=== PATIENT | male | born 1965 | race Hispanic/Latino ===

== ENCOUNTER 2017-09-13 03:53 | Inpatient (IN) | payer OTHER ==
[~2017-09-13] VITALS: Ht 167.6 cm; Wt 87.5 kg
--- NOTE | 2017-09-13 04:17 | ED GI/GU/ABDOMINAL COMPLAINT ---
History of Present Illness General Chief Complaint: Abdominal Pain/Flank Pain Stated Complaint: "ABD PAIN" Source: patient Exam Limitations: no limitations Vital Signs & Intake/Output Vital Signs & Intake/Output Vital Signs Date Time Temp Pulse Resp B/P B/P Pulse O2 O2 Flow FiO2 Mean Ox Delivery Rate 09/13 0620 98.6 95 18 133/96 94 Room Air 09/13 0451 98.0 83 16 127/83 96 Room Air 09/13 0409 97.9 60 24 163/95 98 Room Air Room Air Allergies Coded Allergies: No Known Allergies (09/13/17) Triage Note: 52YO MALE TO TRIAGE W/CO ABD, VOMITING X 2 H PT IS WELSH SPEAKING. Triage Nurses Notes Reviewed? yes Onset: Gradual Duration: hour(s): Timing: recent history Quality/Severity: cramping Location: generalized abdomen Radiation: no radiation Activities at Onset: none Prior Abdominal Problems: none Modifying Factors: Worsens With: palpation. Associated Symptoms: abdominal pain HPI: 52-year-old gentleman history of diabetes and hypertension, history of umbilical hernia repair presents with 4 hour history of abdominal pain, distention, nausea. He notes that he had a bowel movement that was normal approximately 5 hours ago. For the past 2 hours he has been vomiting. He has no chest pain shortness of breath dizziness fever chills dysuria or increased urination. He is otherwise well. (Khanh BLACKBURN,Chaim Garcia) Reconcile Medications Aspirin (Ecotrin*) 81 MG TABLET. 81 MG PO DAILY HEART HEALTH (Reported) Dapagliflozin Propanediol (Farxiga) 5 MG TABLET 5 MG PO DAILY DIABETES ( Reported) Glipizide (Glipizide ER) 10 MG TAB.ER.24 10 MG PO BID DIABETES (Reported) Linagliptin (Tradjenta) 5 MG TABLET 5 MG PO DAILY DIABETES (Reported) Metformin HCl (Metformin HCl ER) 500 MG TAB.ER.24 1 G PO DAILY DIABETES ( Reported) Metoprolol Succ XL (Toprol XL) 25 MG TAB 25 MG PO DAILY HTN (Reported) Repaglinide (Prandin) 2 MG TABLET 2 MG PO DAILY DIABETES (Reported) Repaglinide (Prandin) 2 MG TABLET 2 MG PO TID DIABETES (Reported) (Talat BLACKBURN,Arslan) Past History Travel History Traveled to [place] past 21 day No Medical History Any Pertinent Medical History? see below for history Neurological: NONE EENT: NONE Cardiovascular: hyperlipidemia Respiratory: NONE Gastrointestinal: NONE Hepatic: NONE Renal: NONE Musculoskeletal: NONE Psychiatric: NONE Endocrine: diabetes Surgical History Surgical History: none Psychosocial History What is your primary language Australian Tobacco Use: Never used Family History Hx Contributory? No (Khanh BLACKBURN,Chaim Garcia) Review of Systems Review of Systems Constitutional: Reports: no symptoms. EENTM: Reports: no symptoms. Respiratory: Reports: no symptoms. Cardiovascular: Reports: no symptoms. GI: Reports: no symptoms. Genitourinary: Reports: no symptoms. Musculoskeletal: Reports: no symptoms. Skin: Reports: no symptoms. Neurological/Psychological: Reports: no symptoms. Hematologic/Endocrine: Reports: no symptoms. Immunologic/Allergic: Reports: no symptoms. All Other Systems: Reviewed and Negative (Khanh BLACKBURN,Chaim Garcia) Physical Exam Physical Exam General Appearance: well developed/nourished, mild distress, moderate distress Head: atraumatic, normal appearance Eyes: Bilateral: normal appearance. Ears, Nose, Throat, Mouth: hearing grossly normal, moist mucous membrane Neck: normal inspection, supple, full range of motion Respiratory: normal breath sounds, chest non-tender, no respiratory distress, quiet respiration, lungs clear Cardiovascular: regular rate/rhythm Gastrointestinal: moderate abdominal distention. Soft without focal tenderness. Decreased bowel sounds. Back: normal inspection Extremities: normal range of motion Neurologic/Psych: no motor/sensory deficits, awake, alert, oriented x 3 Skin: intact, normal color, warm/dry Core Measures ACS in differential dx? No Sepsis Present: No Sepsis Focused Exam Completed? No (Khanh BLACKBURN,Chaim Garcia) Progress Differential Diagnosis: obstruction versus ileus versus diverticulitis versus other Plan of Care: Orders Procedure Date/time Status Admit to inpatient 09/13 0710 Active Patient Data 09/13 07 Active Add-on Test (ER Only) 09/13 07 Active FingerStick- Glucose 09/13 07 Active TYPE & SCREEN (NOT X-MATCH) 09/13 07 Active PROTHROMBIN TIME 09/13 0417 Active TROPONIN LEVEL 09/13 035 Complete LIPASE 09/13 354 Complete HEPATIC FUNCTION PANEL 09/13 354 Complete CBC WITHOUT DIFFERENTIAL 09/13 354 Complete BASIC METABOLIC PANEL 09/13 035 Complete AMYLASE 09/13 035 Complete EKG 09/13 035 Active Current Medications Sig/Ronnie Start time Last Medication Dose Stop Time Status Admin Insulin Human Regular 0 Q6 09/13 0715 UNVr (NovoLIN R) Sodium Chloride 1,000 ML BOLUS ONE 09/13 629 AC 09/13 (Normal Saline 0.9%) 09/13 07 0631 Sodium Chloride 1,000 ML BOLUS ONE 09/13 0530 AC 09/13 (Normal Saline 0.9%) 09/13 0729 0710 Laboratory Tests 09/13/17416: PT Pending, INR Pending 09/13/17414: Anion Gap 20 H, Estimated GFR > 60, BUN/Creatinine Ratio 16.7, Glucose 316 H, Calcium 10.5 H, Total Bilirubin 1.8 H, Direct Bilirubin 0.4, AST 29, ALT 59, Alkaline Phosphatase 77, Troponin I < 0.01, Total Protein 8.3 H, Albumin 4.8, Amylase 49, Lipase 58, CBC w Diff NO MAN DIFF REQ, RBC 6.78 H, MCV 82.0, MCH 27.8, MCHC 33.9, RDW 14.7 H, MPV 9.2, Gran % 82.4 H, Lymphocytes % 13.5 L, Monocytes % 3.0, Eosinophils % 1.0, Basophils % 0.1, Absolute Granulocytes 7.8 H, Absolute Lymphocytes 1.3, Absolute Monocytes 0.3, Absolute Eosinophils 0.1, Absolute Basophils 0 Diagnostic Imaging: Viewed by Me: Radiology Read, CT Scan. Discussed w/RAD: Radiology Read, CT Scan. CXR Impression: no acute abnormality, no infiltrates, normal size heart, normal mediastinum, PATIENT: PENELOPE MORENO PRESENT AGE: 52 PATIENT ACCOUNT NO: [id number] : 63 LOCATION: [facility] ORDERING PHYSICIAN: Chaim Cassidy MD SERVICE DATE: 09/13/17 EXAM TYPE: RAD - XRY- PORTABLE CHEST XRAY EXAMINATION: XR PORTABLE CHEST CLINICAL INFORMATION: Dyspnea COMPARISON: None TECHNIQUE: Portable frontal view of the chest was obtained. FINDINGS: The lungs are hypoinflated which limits evaluation. No definite consolidation is seen. No evidence of pneumothorax, significant pleural effusion , or overt pulmonary edema. The cardiac silhouette is enlarged though may be accentuated by low lung volumes. No acute osseous findings are seen. IMPRESSION: Low lung volumes which limits evaluation; no definite acute findings. Enlarged cardiac silhouette may be accentuated due to hypoinflation. DICTATED BY: Danie Kim MD DATE/TIME DICTATED:09/13/17558 DIE CAST TECHNICIAN:ISABELL DATE/ TIME TRANSCRIBED:09/13/17558 CONFIDENTIAL, DO NOT COPY WITHOUT APPROPRIATE AUTHORIZATION. <Electronically signed in Other Vendor System> SIGNED BY: Danie Kim MD 09/13/17 06 Initial ED EKG: sinus tach without acute changes Hand-Off Endorsed To: Arslan Gilliland MD Endorsed Time: 07 Pending: consult, other (PA evaluation) (Khanh BLACKBURN,Chaim Garcia) Departure Departure Disposition: STILL A PATIENT Condition: Stable Clinical Impression Primary Impression: Small bowel obstruction Referrals: Patient Has No Primary Care Dr (PCP/Family) Departure Forms: Customer Survey General Discharge Information Admission Note Spoke With: Joe BLACKBURN,Thien Coronado Documentation of Exam: Documentation of any treatments & extenuating circumstances including Concerns Regarding Discharge (functional status, medication knowledge or non-compliance, living conditions, etc.) that warrant an admission rather than observation: Pt with small bowel obstruction, will merit iv fluids, bowel rest, electrolyte management. (Khanh BLACKBURN,Chaim Garcia)
[2017-09-13 04:24] LABS: ABSOLUTE BASOPHIL COUNT 0 /CUMM (0.0-0.2); ABSOLUTE EOSINOPHIL COUNT 0.1 /CUMM (0.0-0.7); ABSOLUTE GRANULOCYTE CT 7.8 /CUMM (1.4-6.5); ABSOLUTE LYMPH COUNT 1.3 /CUMM (1.2-3.4); ABSOLUTE MONOCYTE COUNT 0.3 /CUMM (0.10-0.60); BASOPHIL % 0.1 % (0.0-2.0); GRANULOCYTE % 82.4 % (42.2-75.2); HEMATOCRIT 55.6 % (42-52); MEAN CORPUSCULAR HGB 27.8 PG (27.0-31.0); MEAN CORPUSCULAR HGB CONC 33.9 G/DL (33.0-37.0); MEAN PLATELET VOLUME 9.2 FL (7.4-10.4); PLATELET COUNT 220 /CUMM (130-400); RBC DISTRIBUTION WIDTH 14.7 % (11.5-14.5); RED BLOOD CELL CT 6.78 /CUMM (4.70-6.10); WHITE BLOOD CELL COUNT 9.4 /CUMM (4.8-10.8)
--- NOTE | 2017-09-13 06:04 | RADIOLOGY REPORT ---
EXAMINATION: XR PORTABLE CHEST CLINICAL INFORMATION: Dyspnea COMPARISON: None TECHNIQUE: Portable frontal view of the chest was obtained. FINDINGS: The lungs are hypoinflated which limits evaluation. No definite consolidation is seen. No evidence of pneumothorax, significant pleural effusion, or overt pulmonary edema. The cardiac silhouette is enlarged though may be accentuated by low lung volumes. No acute osseous findings are seen. IMPRESSION: Low lung volumes which limits evaluation; no definite acute findings. Enlarged cardiac silhouette may be accentuated due to hypoinflation.
--- NOTE | 2017-09-13 06:14 | CT SCAN REPORT ---
EXAMINATION: CT ABDOMEN AND PELVIS WITHOUT CONTRAST CLINICAL INFORMATION: Abdominal pain, distention, question obstruction COMPARISON: None TECHNIQUE: Multidetector volumetric imaging was performed from the superior aspect of the liver through the pubic symphysis. Sagittal and coronal reformatted images were obtained on the technologist's workstation. DLP: 915.04 mGy-cm FINDINGS: LUNG BASES: The visualized lung bases are unremarkable. Coronary artery calcifications are present. LIVER, GALLBLADDER, AND BILIARY TREE: The liver demonstrates hypoattenuation suspicious for steatosis. No biliary ductal dilatation is present. The gallbladder is unremarkable with no evidence of radiopaque gallstones, gallbladder wall thickening, or obvious pericholecystic inflammatory changes. PANCREAS: Unremarkable. SPLEEN: The spleen is enlarged, measuring approximately 15.4 cm in craniocaudal dimension. ADRENAL GLANDS: Unremarkable. KIDNEYS AND URETERS: No hydronephrosis bilaterally. There is a 0.5 cm right upper pole renal calculus and a 0.5 cm left lower pole renal calculus. No ureteral calculi seen bilaterally. BLADDER: Unremarkable. GASTROINTESTINAL TRACT: There are multiple loops of mildly dilated fluid-filled small bowel in the left to central abdomen, with relatively collapsed loops of more distal small bowel in the right abdomen. Bowel caliber appears to gradually decreased from the central to right abdomen, and overall appearance is suspicious for a developing small bowel obstruction. No discrete transition point is seen. There is a small amount of free fluid in the right abdomen. Colonic diverticulosis is noted. ABDOMINAL WALL: Patient is status post ventral hernia repair. LYMPH NODES: Normal. VASCULAR: There is atherosclerotic calcification along the aorta. PELVIC VISCERA: Unremarkable. Trace pelvic free fluid is noted. OSSEOUS STRUCTURES: Scattered degenerative changes are present in the spine. IMPRESSION: 1. Multiple loops of mildly dilated fluid-filled small bowel in the left to central abdomen, with decreased caliber of bowel loops in the right abdomen. Overall appearance is suspicious for developing small bowel obstruction. 2. Small volume of free fluid. 3. Splenomegaly. 4. Right upper and left lower pole renal calculi. No hydronephrosis. 5. Hepatic steatosis.
[2017-09-13] MEDS ORDERED: ASPIRIN EC81 M1 PO (06:35)
[2017-09-13] MEDS ORDERED: METFORMIN HCL500 M2 PO (06:36)
[2017-09-13] MEDS ORDERED: TOPROL XL25 M1 PO (06:37)
[2017-09-13] MEDS ORDERED: FARXIGA5 M1 PO (06:39)
[2017-09-13] MEDS ORDERED: GLIPIZIDE ER10 M1 PO (06:41)
[2017-09-13] MEDS ORDERED: TRADJENTA5 M1 PO (06:46)
[2017-09-13] MEDS ORDERED: PRANDIN PO ×2 (06:52→06:53)
--- NOTE | 2017-09-13 07:21 | Admission Core Measures ---
Acute Coronary Syndrome (CM) ACS Core Measures Acute Coronary Syndrome Diagnosis No Congestive Heart Failure (NEW) CHF Core Measures Congestive Heart Failure Diagnosis No Cerebrovascular Accident (NEW) CVA Core Measures CVA/TIA Diagnosis No Venous Thromboembolism VTE Core Humphrey (View Protocol) VTE Risk Factors Obesity No Mechanical VTE Prophylaxis d/t N/A MechProphylax Ordered No VTE Pharm Prophylaxis d/t NA PharmProphylax ordered Problem List As ranked by this Provider includes Assessment & Plan 1. Small bowel obstruction HOME MEDS Home Med List Aspirin (Ecotrin*) 81 MG TABLET.DR 81 MG PO DAILY HEART HEALTH (Reported) Dapagliflozin Propanediol (Farxiga) 5 MG TABLET 5 MG PO DAILY DIABETES ( Reported) Glipizide (Glipizide ER) 10 MG TAB.ER.24 10 MG PO BID DIABETES (Reported) Linagliptin (Tradjenta) 5 MG TABLET 5 MG PO DAILY DIABETES (Reported) Metformin HCl (Metformin HCl ER) 500 MG TAB.ER.24 1 G PO DAILY DIABETES ( Reported) Metoprolol Succ XL (Toprol XL) 25 MG TAB 25 MG PO DAILY HTN (Reported) Repaglinide (Prandin) 2 MG TABLET 2 MG PO DAILY DIABETES (Reported) Repaglinide (Prandin) 2 MG TABLET 2 MG PO TID DIABETES (Reported)
[2017-09-13 07:24] LABS: PT 12.1 SEC (9.4-12.5)
--- NOTE | 2017-09-13 09:25 | History & Physical ---
Bryan Myers 09/13/17 0923: General Information and HPI MD Statement: I have seen and personally examined PENELOPE MORENO and documented this H&P. The patient is a 52 year old M who presented with a patient stated chief complaint of [small bowel obstruction]. Source of Information: patient, old records Exam Limitations: language barrier History of Present Illness: Mr. Moreno is a 52-year-old male, Tajik-speaking only (very little Bolivian), with a past medical history of diabetes mellitus, obesity, high cholesterol presents with a history of abdominal pain and vomiting approximately 3-5 hours prior to admission. He denies a past history of this or previous bowel obstructions. He had a repair of an umbilical hernia proximally 5 years ago. He states that he had a formed bowel movement yesterday and has no urinary complaints at this time. CAT scan evidence reveals dilated loops of small bowel consistent with small bowel obstruction Allergies/Medications Allergies: Coded Allergies: No Known Allergies (09/13/17) Home Med list Aspirin (Ecotrin*) 81 MG TABLET.DR 81 MG PO DAILY HEART HEALTH (Reported) Dapagliflozin Propanediol (Farxiga) 5 MG TABLET 5 MG PO DAILY DIABETES ( Reported) Glipizide (Glipizide ER) 10 MG TAB.ER.24 10 MG PO BID DIABETES (Reported) Linagliptin (Tradjenta) 5 MG TABLET 5 MG PO DAILY DIABETES (Reported) Metformin HCl (Metformin HCl ER) 500 MG TAB.ER.24 1 G PO DAILY DIABETES ( Reported) Metoprolol Succ XL (Toprol XL) 25 MG TAB 25 MG PO DAILY HTN (Reported) Repaglinide (Prandin) 2 MG TABLET 2 MG PO DAILY DIABETES (Reported) Repaglinide (Prandin) 2 MG TABLET 2 MG PO TID DIABETES (Reported) Past History Travel History Traveled to [place] past 21 day No Medical History Neurological: NONE EENT: NONE Cardiovascular: hyperlipidemia Respiratory: NONE Gastrointestinal: NONE Hepatic: NONE Renal: NONE Musculoskeletal: NONE Psychiatric: NONE Endocrine: diabetes Surgical History Surgical History: none Review of Systems Review of Systems Constitutional: Denies: no symptoms, see HPI, chills, diaphoresis, fever, malaise, weakness, unexplained weight loss. Exam & Diagnostic Data Last 24 Hrs of Vital Signs/I&O Vital Signs Date Time Temp Pulse Resp B/P B/P Pulse O2 O2 Flow FiO2 Mean Ox Delivery Rate 09/13 0936 98.6 70 20 132/73 09/13 0743 98.6 88 18 142/94 97 Room Air 09/13 0620 98.6 95 18 133/96 94 Room Air 09/13 0451 98.0 83 16 127/83 96 Room Air 09/13 0409 97.9 60 24 163/95 98 Room Air Room Air Intake & Output 09/13 1600 09/13 0800 06 0000 Intake Total 1000 2000 Output Total 230 Balance 1000 1770 Intake, IV 1000 2000 Intake, Oral 0 Output, 30 Gastric Drainage Output, Urine 200 Patient 180 lb Weight Physical Exam General Appearance Alert, Oriented X3, Cooperative Skin No Significant Lesion HEENT PERRLA Cardiovascular Regular Rate Lungs Clear to Auscultation Abdomen obese, distended, minimal tenderness to palpation, hypoactive bowel sounds, no guarding to palpation Neurological Strength at 5/5 X4 Ext Extremities No Edema, Normal Pulses, No Tenderness/Swelling Last 24 Hrs of Labs/Douglas: Laboratory Tests 09/13/17416: PT 12.1, INR 1.11 09/13/17414: Anion Gap 20 H, Estimated GFR > 60, BUN/Creatinine Ratio 16.7, Glucose 316 H, Calcium 10.5 H, Total Bilirubin 1.8 H, Direct Bilirubin 0.4, AST 29, ALT 59, Alkaline Phosphatase 77, Troponin I < 0.01, Total Protein 8.3 H, Albumin 4.8, Amylase 49, Lipase 58, CBC w Diff NO MAN DIFF REQ, RBC 6.78 H, MCV 82.0, MCH 27.8, MCHC 33.9, RDW 14.7 H, MPV 9.2, Gran % 82.4 H, Lymphocytes % 13.5 L, Monocytes % 3.0, Eosinophils % 1.0, Basophils % 0.1, Absolute Granulocytes 7.8 H, Absolute Lymphocytes 1.3, Absolute Monocytes 0.3, Absolute Eosinophils 0.1, Absolute Basophils 0 Diagnostic Data CXR Results SERVICE DATE: 09/13/17-799 EXAM TYPE: RAD - XRY-CHEST XRAY, TWO VIEWS EXAMINATION: XR CHEST CLINICAL INFORMATION: NG tube placement COMPARISON: 09/13/2017 TECHNIQUE: 2 views of the chest were obtained. FINDINGS: The examination is limited by the marked hypoexpansion, as noted previously. No obvious consolidation or atelectasis. The cardiac silhouette is prominent but difficult to evaluate on this study. Enteric tube extends below diaphragm, tip not visualized. IMPRESSION: Low lung volumes. No obvious consolidation or atelectasis. DICTATED BY: Myke Sykes MD DATE/TIME DICTATED:09/13/17925 SPANISH MEDICAL INTERPRETER:ISABELL DATE/TIME TRANSCRIBED:09/13/17925 Other Results SERVICE DATE: 09/13/17 EXAM TYPE: CAT - CT ABD & PELVIS W/O IV CONTRAS EXAMINATION: CT ABDOMEN AND PELVIS WITHOUT CONTRAST CLINICAL INFORMATION: Abdominal pain, distention, question obstruction COMPARISON: None TECHNIQUE: Multidetector volumetric imaging was performed from the superior aspect of the liver through the pubic symphysis. Sagittal and coronal reformatted images were obtained on the technologist's workstation. DLP: 915.04 mGy-cm FINDINGS: LUNG BASES: The visualized lung bases are unremarkable. Coronary artery calcifications are present. LIVER, GALLBLADDER, AND BILIARY TREE: The liver demonstrates hypoattenuation suspicious for steatosis. No biliary ductal dilatation is present. The gallbladder is unremarkable with no evidence of radiopaque gallstones, gallbladder wall thickening, or obvious pericholecystic inflammatory changes. PANCREAS: Unremarkable. SPLEEN: The spleen is enlarged, measuring approximately 15.4 cm in craniocaudal dimension. ADRENAL GLANDS: Unremarkable. KIDNEYS AND URETERS: No hydronephrosis bilaterally. There is a 0.5 cm right upper pole renal calculus and a 0.5 cm left lower pole renal calculus. No ureteral calculi seen bilaterally. BLADDER: Unremarkable. GASTROINTESTINAL TRACT: There are multiple loops of mildly dilated fluid-filled small bowel in the left to central abdomen, with relatively collapsed loops of more distal small bowel in the right abdomen. Bowel caliber appears to gradually decreased from the central to right abdomen, and overall appearance is suspicious for a developing small bowel obstruction. No discrete transition point is seen. There is a small amount of free fluid in the right abdomen. Colonic diverticulosis is noted. ABDOMINAL WALL: Patient is status post ventral hernia repair. LYMPH NODES: Normal. VASCULAR: There is atherosclerotic calcification along the aorta. PELVIC VISCERA: Unremarkable. Trace pelvic free fluid is noted. OSSEOUS STRUCTURES: Scattered degenerative changes are present in the spine. IMPRESSION: 1. Multiple loops of mildly dilated fluid-filled small bowel in the left to central abdomen, with decreased caliber of bowel loops in the right abdomen. Overall appearance is suspicious for developing small bowel obstruction. 2. Small volume of free fluid. 3. Splenomegaly. 4. Right upper and left lower pole renal calculi. No hydronephrosis. 5. Hepatic steatosis. DICTATED BY: Danie Kim MD DATE/TIME DICTATED:09/13/17600 SPANISH MEDICAL INTERPRETER:ISABELL DATE/TIME TRANSCRIBED:09/13/17600 Assessment/Plan Assessment: Mr. Moreno is 52-year-old male who presents with nausea vomiting and abdominal pain. He has CAT scan evidence of dilated loops of small bowel consistent with small bowel obstruction. Also upon arrival he had elevated blood sugar is 300 with a history of by mouth diabetic medication. This case was discussed with Dr. Diaz who feels that the patient should be admitted to the surgical service for observation for possible surgical intervention. Plan Admit to surgical service under the care of Dr. Diaz Nothing by mouth/NG tube Serial abdominal exams Endocrine consult to manage diabetes As Ranked By This Provider Problem List: 1. Small bowel obstruction Core Measures/Misc (12/29) Acute Coronary Syndrome ACS Diagnosis: No Congestive Heart Failure Congestive Heart Failure Diagnosis No Cerebrovascular Accident CVA/TIA Diagnosis: No VTE (View Protocol) VTE Risk Factors Obesity No Mechanical VTE Prophylaxis d/t N/A MechProphylax Ordered No VTE Pharm Prophylaxis d/t NA PharmProphylax ordered Sepsis (View protocol) Sepsis Present: No If YES complete Sepsis Event Note If YES complete Sepsis Event Note Thien Diaz MD 09/13/17 1053: Core Measures/Misc (12/29) Sepsis (View protocol) If YES complete Sepsis Event Note If YES complete Sepsis Event Note Attending MD Review Statement Attending Statement Attending MD Statement: examined this patient, discuss w/resident/PA/LIMOUSINE DRIVER, reviewed images Attending Assessment/Plan: Diabetic Tajik speaking male with first episode intestinal obstruction. Pain resolved after NG placement. Prior surgical history is that of laparoscopic umbilical hernia repair. By CT, mesh in good position, however adhesions to mesh may be culprit. Plan for medical management with IVF and serial abdominal exam with ng decompression. Endocrine consult.
--- NOTE | 2017-09-13 09:31 | RADIOLOGY REPORT ---
EXAMINATION: XR CHEST CLINICAL INFORMATION: NG tube placement COMPARISON: 09/13/2017 TECHNIQUE: 2 views of the chest were obtained. FINDINGS: The examination is limited by the marked hypoexpansion, as noted previously. No obvious consolidation or atelectasis. The cardiac silhouette is prominent but difficult to evaluate on this study. Enteric tube extends below diaphragm, tip not visualized. IMPRESSION: Low lung volumes. No obvious consolidation or atelectasis.
--- NOTE | 2017-09-13 09:32 | RADIOLOGY REPORT ---
EXAMINATION: XR ABDOMEN CLINICAL INDICATION: NG tube placement COMPARISON: Selected images CT abdomen pelvis 09/13/2017 TECHNIQUE: AP supine views of the abdomen. 4 images. FINDINGS: Enteric tube extends to the gastric body. No dilated bowel loops are seen on this supine radiograph. There is a small amount of stool in the colon. The visualized lung bases are clear. IMPRESSION: Enteric tube terminates at the level of the gastric body.
--- NOTE | 2017-09-13 11:05 | Cons- Endocrinology ---
General Information and HPI Consulting Request Date of Consult: 09/13/17 Requested By: surgical team Reason for Consult: uncontrolled diabetes Source of Information: patient Exam Limitations: language barrier History of Present Illness: This 52-year-old male emergency room abdominal discomfort nausea and vomiting. It came on earlier today. He did have a history of repair of an umbilical hernia 5 years ago. He was feeling well yesterday. He has been found to have a small bowel obstruction. The patient has a history of diabetes mellitus type 2 hypercholesterolemia. He was on oral medications at home and was not on any insulin. He states he has had a previous injury to his right eye but denies diabetic retinopathy. He denies any previous history of kidney disease. Medications at home included glipizide, metformin, and Farxiga. Allergies/Medications Allergies: Coded Allergies: No Known Allergies (09/13/17) Home Med List: Aspirin (Ecotrin*) 81 MG TABLET.DR 81 MG PO DAILY HEART HEALTH (Reported) Dapagliflozin Propanediol (Farxiga) 5 MG TABLET 5 MG PO DAILY DIABETES ( Reported) Glipizide (Glipizide ER) 10 MG TAB.ER.24 10 MG PO BID DIABETES (Reported) Linagliptin (Tradjenta) 5 MG TABLET 5 MG PO DAILY DIABETES (Reported) Metformin HCl (Metformin HCl ER) 500 MG TAB.ER.24 1 G PO DAILY DIABETES ( Reported) Metoprolol Succ XL (Toprol XL) 25 MG TAB 25 MG PO DAILY HTN (Reported) Repaglinide (Prandin) 2 MG TABLET 2 MG PO DAILY DIABETES (Reported) Repaglinide (Prandin) 2 MG TABLET 2 MG PO TID DIABETES (Reported) Current Medications: Current Medications Sig/Ronnie Start time Last Medication Dose Route Stop Time Status Admin Aspirin Buffered 81 MG DAILY 09/13 0900 AC 09/13 PO 0936 Heparin Sodium 5,000 UNIT Q8 09/13 1400 AC (Porcine) SC Insulin Human Regular 0 Q6 09/13 0715 AC 09/13 SC 0718 Lidocaine 0 .STK-MED ONE 09/13 0734 DC TOP Metoprolol Succinate 25 MG DAILY 09/13 0900 AC 09/13 PO 0936 Morphine Sulfate 0 .STK-MED ONE 09/13 0432 DC .ROUTE Morphine Sulfate 4 MG ONCE ONE 09/13 0430 DC 09/13 IV 09/13 043 0430 Ondansetron HCl 4 MG Q8P PRN 09/13 0715 AC IV Ondansetron HCl 0 .STK-MED ONE 09/13 0433 DC .ROUTE Ondansetron HCl 4 MG ONCE ONE 09/13 0430 DC / IV 09/13 0431 0430 Potassium Chloride 20 MEQ 125 MLS/HR 09/13 1115 UNVr IV Sodium Chloride 1,000 ML .Q8H / 0715 DC / IV 0805 Sodium Chloride 1,000 ML BOLUS ONE 09/13 0630 DC 06/ IV / 0729 0631 Sodium Chloride 1,000 ML BOLUS ONE 09/13 0630 DC 06/ IV / 0729 0710 Sodium Chloride 1,000 ML BOLUS ONE 09/13 0430 DC / IV / 0529 0430 Review of Systems Review of Systems Constitutional: Denies: chills, fever. Cardiovascular: Denies: chest pain. GI: Reports: abdominal pain, nausea, vomiting. Skin: Reports: no symptoms. Neurological/Psychological: Reports: anxiety. Denies: headache. Past History Travel History Traveled to [place] past 21 day No Medical History Neurological: NONE EENT: NONE Cardiovascular: hyperlipidemia Respiratory: NONE Gastrointestinal: NONE Hepatic: NONE Renal: NONE Musculoskeletal: NONE Psychiatric: NONE Endocrine: diabetes Surgical History Surgical History: 1 Exam & Diagnostic Data Last 24 Hrs of Vital Signs/I&O Vital Signs Date Time Temp Pulse Resp B/P B/P Pulse O2 O2 Flow FiO2 Mean Ox Delivery Rate 09/13 1043 8.0 71 18 135/87 94 Room Air 09/13 0936 98.6 70 20 132/73 / 0743 98.6 88 18 142/94 97 Room Air / 0620 98.6 95 18 133/96 94 Room Air 09/13 0451 98.0 83 16 127/83 96 Room Air / 0409 97.9 60 24 163/95 98 Room Air Room Air Intake & Output 09/13 1600 06/02 0800 09/13 0000 Intake Total 1000 2000 Output Total 230 Balance 1000 1770 Intake, IV 1000 2000 Intake, Oral 0 Output, 30 Gastric Drainage Output, Urine 200 Patient 180 lb Weight Vital Signs Date Time Temp Pulse Resp B/P B/P Pulse O2 O2 Flow FiO2 Mean Ox Delivery Rate 09/13 1043 8.0 71 18 135/87 94 Room Air 09/13 0936 98.6 70 20 132/73 06/ 0743 98.6 88 18 142/94 97 Room Air / 0620 98.6 95 18 133/96 94 Room Air 09/13 0451 98.0 83 16 127/83 96 Room Air / 0409 97.9 60 24 163/95 98 Room Air Room Air Intake & Output 09/13 1600 06/02 0800 06 0000 Intake Total 1000 2000 Output Total 230 Balance 1000 1770 Intake, IV 1000 2000 Intake, Oral 0 Output, 30 Gastric Drainage Output, Urine 200 Patient 180 lb Weight Physical Exam General Appearance: well developed/nourished, alert, awake Head: normal appearance Neck: normal inspection Respiratory: normal breath sounds Cardiovascular: regular rate/rhythm Gastrointestinal: soft, distention Extremities: normal inspection Labs/Douglas Results: Laboratory Tests 09/13/17416: PT 12.1, INR 1.11 09/13/17414: Anion Gap 20 H, Estimated GFR > 60, BUN/Creatinine Ratio 16.7, Glucose 316 H, Calcium 10.5 H, Total Bilirubin 1.8 H, Direct Bilirubin 0.4, AST 29, ALT 59, Alkaline Phosphatase 77, Troponin I < 0.01, Total Protein 8.3 H, Albumin 4.8, Amylase 49, Lipase 58, CBC w Diff NO MAN DIFF REQ, RBC 6.78 H, MCV 82.0, MCH 27.8, MCHC 33.9, RDW 14.7 H, MPV 9.2, Gran % 82.4 H, Lymphocytes % 13.5 L, Monocytes % 3.0, Eosinophils % 1.0, Basophils % 0.1, Absolute Granulocytes 7.8 H, Absolute Lymphocytes 1.3, Absolute Monocytes 0.3, Absolute Eosinophils 0.1, Absolute Basophils 0 Assessment/Plan Assessment/Plan This 52-year-old male has a known history of diabetes mellitus type 2. He came to the emergency room with nausea vomiting and abdominal discomfort. He has been found to have a small bowel obstruction. While he is n.p.o. I would suggest we place him on D5 half-normal saline with 20 mL quadrant KCl at 125 cc/h. Thereafter we can cover him with insulin. We can give him Levemir 5 units twice a day and also sliding scale NovoLog for sugar beginning above 150. Insulin orders have been written. Once he is eating again we can place him back on a mealtime schedule and may restart his oral agents depending on how he does. Consult Acknowledgment - Thank you for your consult request.
[2017-09-13 15:36] VITALS: BP 130/90
[2017-09-13 21:39] VITALS: BP 124/84
[2017-09-14 06:56] VITALS: BP 140/86
--- NOTE | 2017-09-14 09:30 | PN- Diabetes ---
Assessment/Plan Diabetes Assessment: Patient feels okay. He is still n.p.o. and is on NG tube drainage.The patient's fingerstick blood sugars yesterday were 128, 154, and this morning 169. The patient is on D5 half-normal saline with 20 mEq KCl at 125 cc/h. Plan: Suggest continue the present IV fluids with glucose in it as well as the present insulin regimen. Patient needs a repeat CBC, BUN/creatinine and electrolytes today. Subjective Subjective: Feels okay Review of Systems Cardiovascular: Denies: chest pain. Respiratory: Denies: short of breath. Gastrointestinal: Denies: abdominal pain. Skin: Reports: no symptoms. Objective Last 24 Hrs of Vital Signs/I&O Vital Signs Date Time Temp Pulse Resp B/P B/P Pulse O2 O2 Flow FiO2 Mean Ox Delivery Rate 06/ 0656 97.6 69 20 140/86 92 06/02 2139 97.9 75 18 124/84 94 Room Air 06/02 1536 97.6 85 20 130/90 95 Room Air 06/ 1301 98.0 81 18 143/91 97 Room Air 06/02 1043 98.6 71 18 135/87 94 Room Air 06/02 0936 98.6 70 20 132/73 Intake & Output 06/03 1600 06/03 0800 06/03 0000 Intake Total 1000 875 Output Total 200 250 Balance 800 625 Intake, IV 1000 875 Output, 200 250 Gastric Drainage Vital Signs Date Time Temp Pulse Resp B/P B/P Pulse O2 O2 Flow FiO2 Mean Ox Delivery Rate /03 0656 97.6 69 20 140/86 92 06/02 2139 97.9 75 18 124/84 94 Room Air 06/02 1536 97.6 85 20 130/90 95 Room Air 06/02 1301 98.0 81 18 143/91 97 Room Air 06/02 1043 98.6 71 18 135/87 94 Room Air 06/02 0936 98.6 70 20 132/73 Intake & Output 06/03 1600 06/03 0800 06/03 0000 Intake Total 1000 875 Output Total 200 250 Balance 800 625 Intake, IV 1000 875 Output, 200 250 Gastric Drainage Physical Exam General Appearance: alert, awake, comfortable Head: normal appearance Respiratory: normal breath sounds Cardiovascular: regular rate/rhythm Abdomen: distention, hypoactive bowel sounds Extremities: normal inspection Current Medications: Current Medications Sig/Ronnie Start time Last Medication Dose Route Stop Time Status Admin Acetaminophen 1,000 MG Q6H 09/13 1930 AC 09/14 N/A 1 UNIT IV 09/14 1344 0834 Aspirin Buffered 81 MG DAILY 09/13 0900 AC 09/14 PO 0834 Heparin Sodium 5,000 UNIT Q8 / 1400 AC 09/14 (Porcine) SC 0712 Heparin Sodium 0 .STK-MED ONE 09/13 1324 DC (Porcine) .ROUTE Insulin Aspart 0 Q4 / 1400 AC 09/14 SC 0712 Insulin Detemir 5 UNITS BID 09/13 1105 AC 09/14 SC 0842 Insulin Human Regular 0 Q6 09/13 0715 DC 09/13 SC 0718 Metoprolol Succinate 25 MG DAILY 09/13 0900 AC 09/14 PO 0834 Morphine Sulfate 4 MG Q4-6 PRN 09/13 1930 AC 09/13 IV 2100 Ondansetron HCl 4 MG Q8P PRN 09/13 0715 AC IV Potassium Chloride 20 MEQ Q8H / 1200 AC 09/14 Dextrose/Sodium 1,000 ML IV 0712 Chloride Potassium Chloride 20 MEQ 125 MLS/HR 09/13 1115 DC IV Sodium Chloride 1,000 ML .Q8H 09/13 0715 DC 09/13 IV 0805 Findings Pertinent Lab/Douglas Results: Laboratory Tests 09/13 09/13 0417 0415 Chemistry Sodium (137 - 145 mmol/L) 142 Potassium (3.5 - 5.1 mmol/L) 4.3 Chloride (98 - 107 mmol/L) 99 Carbon Dioxide (22 - 30 mmol/L) 23 Anion Gap (5 - 16) 20 H BUN (9 - 20 mg/dL) 15 Creatinine (0.7 - 1.2 mg/dL) 0.9 Estimated GFR (>60 ml/min) > 60 BUN/Creatinine Ratio (7 - 25 %) 16.7 Glucose (65 - 99 mg/dL) 316 H Calcium (8.4 - 10.2 mg/dL) 10.5 H Total Bilirubin (0.2 - 1.3 mg/dL) 1.8 H Direct Bilirubin (< 0.4 mg/dL) 0.4 AST (17 - 59 U/L) 29 ALT (21 - 72 U/L) 59 Alkaline Phosphatase (< 127 U/L) 77 Troponin I (<0.11 ng/ml) < 0.01 Total Protein (6.3 - 8.2 g/dL) 8.3 H Albumin (3.5 - 5.0 g/dL) 4.8 Amylase (30 - 110 U/L) 49 Lipase (23 - 300 U/L) 58 Coagulation PT (9.4 - 12.5 SEC) 12.1 INR (0.90 - 1.17) 1.11 Hematology CBC w Diff NO MAN DIFF REQ WBC (4.8 - 10.8 /CUMM) 9.4 RBC (4.70 - 6.10 /CUMM) 6.78 H Hgb (14.0 - 18.0 G/DL) 18.9 H Hct (42 - 52 %) 55.6 H MCV (80.0 - 94.0 FL) 82.0 MCH (27.0 - 31.0 PG) 27.8 MCHC (33.0 - 37.0 G/DL) 33.9 RDW (11.5 - 14.5 %) 14.7 H Plt Count (130 - 400 /CUMM) 220 MPV (7.4 - 10.4 FL) 9.2 Gran % (42.2 - 75.2 %) 82.4 H Lymphocytes % (20.5 - 51.1 %) 13.5 L Monocytes % (1.7 - 9.3 %) 3.0 Eosinophils % (0 - 5 %) 1.0 Basophils % (0.0 - 2.0 %) 0.1 Absolute Granulocytes (1.4 - 6.5 /CUMM) 7.8 H Absolute Lymphocytes (1.2 - 3.4 /CUMM) 1.3 Absolute Monocytes (0.10 - 0.60 /CUMM) 0.3 Absolute Eosinophils (0.0 - 0.7 /CUMM) 0.1 Absolute Basophils (0.0 - 0.2 /CUMM) 0
--- NOTE | 2017-09-14 09:47 | PN- General Surgery ---
See Addendum Subjective Subjective: PATIENT SITTING UP IN BED, NGT IN PLACE. HE IS COMFORTABLE AND HAS MINIMAL ABDOMINAL DISCOMFORT THIS AM, NO PASSING GAS. Objective Vital Signs and I&Os Vital Signs Date Time Temp Pulse Resp B/P B/P Pulse O2 O2 Flow FiO2 Mean Ox Delivery Rate 09/14 0656 97.6 69 20 140/86 92 09/13 2139 97.9 75 18 124/84 94 Room Air 09/13 1536 97.6 85 20 130/90 95 Room Air 09/13 1301 98.0 81 18 143/91 97 Room Air 09/13 1043 98.6 71 18 135/87 94 Room Air Intake & Output 09/14 1600 09/14 0800 / 0000 / 1600 09/13 0800 09/13 0000 Intake Total 7661 817 1895 2000 Output Total 200 250 80 230 Balance 800 929 689 8481 Intake, IV 4937 812 9761 2000 Intake, Oral 0 Output, 200 250 80 30 Gastric Drainage Output, Urine 200 Patient 200 lb 180 lb Weight Weight Reported by Patient Measurement Method ALERT AND ORIENTED VSS CHEST- CTA SYMMETRIC HEART-RRR ABD- DISTENDED WITH GENREALIZED SORENESS, FAINT BS NO GAS BILATERAL LOWER EXTREM SOFT, NO EDEMA Assessment/Plan Assessment/Plan LABS THIS AM PENDING PATIENT SEEN BY DR. WILLARD FOR DM AND MEDS ADJUSTED NGT IN PLACE 450 OVERNIGHT -ABD QUIET CONTINUE TO MONITOR OUTPUT AND SERIAL ABD EXAMS Core Measures Venous Thromboembolism VTE Risk Factors Obesity No Mechanical VTE Prophylaxis d/t N/A MechProphylax Ordered No VTE Pharm Prophylaxis d/t NA PharmProphylax ordered
--- NOTE | 2017-09-14 12:34 | RADIOLOGY REPORT ---
EXAMINATION: XR ABDOMEN MULTIPLE VIEWS CLINICAL INDICATION: Small bowel obstruction. Follow-up. COMPARISON: KUB 09/13/2017, CT abdomen and pelvis 09/13/2017. TECHNIQUE: 4 views of the abdomen. FINDINGS: There is scattered gas in the bowel. No dilated gas filled segments are demonstrated or large diameter opacified segments by plain film. The quantity of bowel gas is less than prior KUB. Again, there is splenomegaly as noted on CT. The nasogastric tube has been pulled back from the stomach with tip in distal thoracic esophagus. Results called to surgical PA (Kymberly Tolbert) at 1225 hours. IMPRESSION: 1. No dilated gas-filled segments of bowel or large diameter visualized opacified bowel segments on plain film. 2. NG tube has migrated from the stomach on prior study to the distal thoracic esophagus on current exam.
[2017-09-14 13:06] LABS: ABSOLUTE BASOPHIL COUNT 0 /CUMM (0.0-0.2); ABSOLUTE EOSINOPHIL COUNT 0.2 /CUMM (0.0-0.7); ABSOLUTE GRANULOCYTE CT 3.8 /CUMM (1.4-6.5); ABSOLUTE LYMPH COUNT 0.9 /CUMM (1.2-3.4); ABSOLUTE MONOCYTE COUNT 0.2 /CUMM (0.10-0.60); BASOPHIL % 0.9 % (0.0-2.0); EOSINOPHIL % 3.1 % (0-5); GRANULOCYTE % 73.8 % (42.2-75.2); MEAN CORPUSCULAR HGB 28.6 PG (27.0-31.0); MEAN CORPUSCULAR HGB CONC 34.5 G/DL (33.0-37.0); MEAN CORPUSCULAR VOLUME 82.7 FL (80.0-94.0); MEAN PLATELET VOLUME 9.3 FL (7.4-10.4); PLATELET COUNT 147 /CUMM (130-400); WHITE BLOOD CELL COUNT 5.2 /CUMM (4.8-10.8)
[2017-09-14 13:15] LABS: HEMATOCRIT 44.6 % (42-52)
[2017-09-14 14:59] VITALS: BP 138/88
[2017-09-14 22:00] VITALS: BP 143/92
[2017-09-15 06:22] VITALS: BP 144/86
--- NOTE | 2017-09-15 07:28 | PN- General Surgery ---
See Addendum Subjective Subjective: Patient states he is feeling better. Had bm last night. No nausea or vomitting. No chest pain, shortness of breath. Is hungry. Objective Vital Signs and I&Os Vital Signs Date Time Temp Pulse Resp B/P B/P Pulse O2 O2 Flow FiO2 Mean Ox Delivery Rate 09/15 621 97.7 72 20 144/86 95 09/15 0206 99.0 09/14 2200 98.1 67 18 143/92 96 Room Air 09/14 1459 98.9 70 20 138/88 94 Room Air Intake & Output 09/15 0800 09/15 0000 09/14 1600 09/14 0800 09/14 0000 09/13 1600 Intake Total 6032 971 6667 3993 184 9792 Output Total 200 250 80 Balance 0942 781 1595 800 625 920 Intake, IV 1000 1000 3739 494 3931 Intake, Oral 120 240 500 Number 0 Bowel Movements Output, 200 250 80 Gastric Drainage Patient 193 lb 200 lb Weight Weight Bed scale Reported by Patient Measurement Method Physical Exam: General: Alert and oriented x3, no acute distress Cardiac: RRR, s1s2 Pulm: CTA bilaterally Abd: Softly distended, non-tender Extremiteis: Neurovascularly intact. Bilateral calves soft and non-tender Assessment/Plan Assessment/Plan This is a 52 year old male, hospital day 2 with what appears to be a resolving vs resolved sbo. -Advance to low residue/ada diet -Dr. Spence was here and will adjust insulin accordingly -Continue ALPS/sqh for dvt ppx -DC iv fluids Will discuss poc with Dr. Diaz Core Measures Venous Thromboembolism VTE Risk Factors Obesity No Mechanical VTE Prophylaxis d/t N/A MechProphylax Ordered No VTE Pharm Prophylaxis d/t NA PharmProphylax ordered
--- NOTE | 2017-09-15 07:32 | PN- Diabetes ---
Assessment/Plan Diabetes Assessment: The patient was admitted with a small bowel obstruction. He improved yesterday and was started on clear liquids. He states he is tolerating the clear liquids well. He states he also had a bowel movement. The patient is presently on Levemir 5 units twice a day as well as sliding scale NovoLog every 4 hours which was based on his IV fluids. Plan: Suggest continue Levemir 5 units twice a day. The patient's IV fluids have been reduced to 75 cc/h.. We can change his NovoLog coverage to before meals. If the patient tolerates his diet well we should discontinue the IV fluids completely later today. Subjective Subjective: Feels okay Review of Systems Constitutional: Denies: chills, fever. Cardiovascular: Denies: chest pain. Respiratory: Denies: short of breath. Gastrointestinal: Denies: nausea, vomiting. Skin: Reports: no symptoms. Objective Last 24 Hrs of Vital Signs/I&O Vital Signs Date Time Temp Pulse Resp B/P B/P Pulse O2 O2 Flow FiO2 Mean Ox Delivery Rate 09/15 621 97.7 72 20 144/86 95 09/15 0206 99.0 09/14 2200 98.1 67 18 143/92 96 Room Air 09/14 1459 98.9 70 20 138/88 94 Room Air Intake & Output 09/15 0800 09/15 0000 09/14 1600 Intake Total 0728 802 2810 Output Total Balance 8678 599 2628 Intake, IV 1000 1000 Intake, Oral 120 240 500 Number 0 Bowel Movements Patient 193 lb Weight Weight Bed scale Measurement Method Vital Signs Date Time Temp Pulse Resp B/P B/P Pulse O2 O2 Flow FiO2 Mean Ox Delivery Rate 09/15 621 97.7 72 20 144/86 95 / 0206 99.0 09/14 2200 98.1 67 18 143/92 96 Room Air 06/ 1459 98.9 70 20 138/88 94 Room Air Intake & Output 09/15 0800 09/15 0000 09/14 1600 Intake Total 2406 439 8204 Output Total Balance 0769 452 4421 Intake, IV 1000 1000 Intake, Oral 120 240 500 Number 0 Bowel Movements Patient 193 lb Weight Weight Bed scale Measurement Method Physical Exam General Appearance: alert, awake, comfortable Neck: normal inspection Respiratory: normal breath sounds Cardiovascular: regular rate/rhythm Abdomen: normal bowel sounds, soft Skin: intact Current Medications: Current Medications Sig/Ronnie Start time Last Medication Dose Route Stop Time Status Admin Acetaminophen 1,000 MG Q6H 09/13 1930 DC 09/14 N/A 1 UNIT IV 09/14 1344 1317 Aspirin Buffered 81 MG DAILY 09/13 0900 AC 09/14 PO 0834 Heparin Sodium 5,000 UNIT Q8 / 1400 AC 09/15 (Porcine) SC 0553 Insulin Aspart 0 Q4 09/13 1400 AC 09/15 SC 0554 Insulin Detemir 5 UNITS BID 09/13 1105 AC 09/14 SC 2152 Metoprolol Succinate 25 MG DAILY 09/13 0900 AC 09/14 PO 0834 Morphine Sulfate 4 MG Q4-6 PRN 09/13 1930 AC 09/13 IV 2100 Ondansetron HCl 4 MG Q8P PRN 09/13 0715 AC IV Potassium Chloride 20 MEQ Q13H 09/15 0730 AC Dextrose/Sodium 1,000 ML IV Chloride Potassium Chloride 20 MEQ Q8H 09/13 1200 DC 09/15 Dextrose/Sodium 1,000 ML IV 0058 Chloride Findings Pertinent Lab/Douglas Results: Laboratory Tests 09/14 1127 Chemistry Sodium (137 - 145 mmol/L) 137 Potassium (3.5 - 5.1 mmol/L) 4.0 Chloride (98 - 107 mmol/L) 104 Carbon Dioxide (22 - 30 mmol/L) 25 Anion Gap (5 - 16) 9 BUN (9 - 20 mg/dL) 9 Creatinine (0.7 - 1.2 mg/dL) 0.6 L Estimated GFR (>60 ml/min) > 60 BUN/Creatinine Ratio (7 - 25 %) 15.0 Hematology CBC w Diff NO MAN DIFF REQ WBC (4.8 - 10.8 /CUMM) 5.2 RBC (4.70 - 6.10 /CUMM) 5.40 Hgb (14.0 - 18.0 G/DL) 15.4 Hct (42 - 52 %) 44.6 MCV (80.0 - 94.0 FL) 82.7 MCH (27.0 - 31.0 PG) 28.6 MCHC (33.0 - 37.0 G/DL) 34.5 RDW (11.5 - 14.5 %) 15.0 H Plt Count (130 - 400 /CUMM) 147 MPV (7.4 - 10.4 FL) 9.3 Gran % (42.2 - 75.2 %) 73.8 Lymphocytes % (20.5 - 51.1 %) 18.3 L Monocytes % (1.7 - 9.3 %) 3.9 Eosinophils % (0 - 5 %) 3.1 Basophils % (0.0 - 2.0 %) 0.9 Absolute Granulocytes (1.4 - 6.5 /CUMM) 3.8 Absolute Lymphocytes (1.2 - 3.4 /CUMM) 0.9 L Absolute Monocytes (0.10 - 0.60 /CUMM) 0.2 Absolute Eosinophils (0.0 - 0.7 /CUMM) 0.2 Absolute Basophils (0.0 - 0.2 /CUMM) 0
[2017-09-15 09:58] VITALS: BP 118/84
--- NOTE | 2017-09-15 13:19 | Patient Discharge Instructions ---
Discharge Instructions General Discharge Information You were seen/treated for: SMALL BOWEL OBSTRUCTION You had these procedures: NONE Watch for these problems: INCREASED ABDOMINAL PAIN, VOMITING Diet Recommended Diet: Low Residue Activity Activity Limited to: Weight bear as tolerated Other activity limits: NO RESTRICTIONS Acute Coronary Syndrome Inclusion Criteria At DC or during hospital stay patient has or had the following: ACS DIAGNOSIS No Discharge Core Measures Meds if any: Prescribed or Continued at Discharge Meds if any: NOT Prescribed or Continued at Discharge Congestive Heart Failure Inclusion Criteria At DC or during hospital stay patient has or had the following: CHF DIAGNOSIS No Discharge Core Measures Meds if any: Prescribed or Continued at Discharge Meds if any: NOT Prescribed or Continued at Discharge Cerebrovascular accident Inclusion Criteria At DC or during hospital stay patient has or had the following: CVA/TIA Diagnosis No Discharge Core Measures Meds if any: Prescribed or Continued at Discharge Meds if any: NOT Prescribed or Continued at Discharge Venous thromboembolism Inclusion Criteria VTE Diagnosis No VTE Type NONE VTE Confirmed by (Test) NONE Discharge Core Measures - Per Current guidelines, there needs to be overlap - treatment for the first 5 days of Warfarin therapy. - If discharged on Warfarin prior to 5 days of - overlap therapy, the patient will need to be - assessed for post discharge needs including - *Post discharge parental anticoagulation - *Warfarin and/or parental anticoagulation education - *Follow up date to check INR post discharge At least 5 days overlap therapy as Inpatient No Meds if any: Prescribed or Continued at Discharge Note: Overlap Therapy is Warfarin and Anticoagulant Meds if any: NOT Prescribed or Continued at Discharge
--- NOTE | 2017-09-15 14:00 | Event Note ---
Event Note Event Note: TOLERATED LOW RES DIET DISCUSSED DIABETES WITH DR WILLARD WILL DISCONTINUE INSULIN RESUME PRE ADMISSION DIABETIC REGIME AND F/U WITH DR IN [place] BUT IF REMAINS IN ARE[place] CAN F/U WITH DR WILLARD NEEDED
== END 2017-09-15 14:35 | DRG 390 ==
LOC: ERH 03:53 → ERHI 07:10 → 2NB 07:10 → ENRESERV 13:43 → ENTRNSPT 14:52 → 2NB 14:53 → EDTRNSPTSTS 15:13 → 2NB 15:25 → CMPTRNSPT 15:36 → ENPENDDIS 09-15 14:01 → 2NB 09-15 14:35
PROVIDERS: Pediatrics; Physician Assistant
DX: K56.609 Unspecified intestinal obstruction, unspecified as to partial versus complete obstruction (principal); E11.9 Type 2 diabetes mellitus without complications; Z79.84 Long term (current) use of oral hypoglycemic drugs; E66.9 Obesity, unspecified; E78.5 Hyperlipidemia, unspecified; Z79.82 Long term (current) use of aspirin; Z68.32 Body mass index [BMI] 32.0-32.9, adult
CPT/HCPCS: 2NBSP; 36592; 71045; 71046; 74018; 74021; 74176; 82436; 93005; 93010; 96361; 96374; 96375; J0131; J1644; J2405; J7042